=== PATIENT | female | born 1985 | race African-American/Black ===

== ENCOUNTER 2016-10-21 02:45 | Emergency (ER) | payer BC ==
[~2016-10-21] VITALS: Ht 162.6 cm; Wt 71.0 kg
[2016-10-21 05:25] VITALS: BP 103/66
[2016-10-21] MEDS ORDERED: TETANUS, DIPHTHERIA, PERTUSSIS VAC/PF 0.5ML (>7YR OLD) IM ONE (05:30)
[2016-10-21] MEDS ORDERED: BACITRACIN ZINC OINT UDPKT TOP ONE (05:30)
[2016-10-21] MEDS ORDERED: LIDOCAINE HCL 1% 20ML VIAL (Pyxis) INJ MC ONE (05:30)
== END 2016-10-21 06:30 | disposition home or self-care (01) ==
LOC: ER 06:24
PROC: 0HQGXZZ Repair Left Hand Skin, External Approach (ICD-10-PCS; principal; 2016-10-21)
DX: S61.211A Laceration without foreign body of left index finger without damage to nail, initial encounter (principal); W25.XXXA Contact with sharp glass, initial encounter; F17.210 Nicotine dependence, cigarettes, uncomplicated; Y93.G1 Activity, food preparation and clean up; Y92.89 Other specified places as the place of occurrence of the external cause
CPT/HCPCS: 12001; 90471; 90715; 99283; J3490; X7700; Z7610

== ENCOUNTER 2018-08-15 01:32 | Emergency (ER) | payer BC, MEDICAID, OTHER ==
[~2018-08-15] VITALS: Ht 160 cm; Wt 72.0 kg
[2018-08-15] MEDS: KETOROLAC 30MG/ML VIAL IV STA (03:09)
[2018-08-15] MEDS: ONDANSETRON HCL 4MG/2ML INJ IV STA (03:09)
[2018-08-15] MEDS: SODIUM CHLORIDE 0.9% 1,000 ML IV ONE (03:09)
[2018-08-15 04:03] LABS: HEMATOCRIT. 39.5 % (36.0-48.0); HEMOGLOBIN. 12.7 g/dL (12.0-16.0); MEAN CORPUSCULAR HEMOGLOBIN 27.3 pg (28.0-32.0); MEAN CORPUSCULAR VOLUME 85.1 fL (81.0-99.0); MEAN PLATELET VOLUME 9.3 fl (7.4-10.4); PLATELET 286 x1000/uL (130-400); RED BLOOD CELL COUNT 4.64 mill/uL (4.2-5.4); RED CELL DISTRIBUTION WIDTH 13.2 % (11.6-14.6)
[2018-08-15 04:08] LABS: CHLORIDE 105 mEq/L (98-107); PROTHROMBIN TIME 10.6 sec (9.6-11.0)
[2018-08-15 05:06] LABS: CLARITY URINE CLOUDY (CLEAR); COLOR URINE YELLOW (YELLOW); KETONES URINE TRACE (NEGATIVE); LEUKOCYTE ESTERASE URINE 1+ (NEGATIVE); NITRITE URINE NEGATIVE (NEGATIVE); OCCULT BLOOD URINE NEGATIVE (NEGATIVE); PH URINE 5.5 (4.5-8.0); PROTEIN URINE NEGATIVE (NEGATIVE); SPECIFIC GRAVITY URINE 1.024 (1.005-1.030); UROBILINOGEN URINE 0.2 E.U./dL (0.2-1.0)
[2018-08-15 06:14] LABS: PLATELET ESTIMATE NORMAL
[2018-08-15] MEDS: MORPHINE SULFATE 4 MG/ML CPJ (NOT FOR IM USE) IV ONE (06:57)
[2018-08-15 07:17] VITALS: BP 101/68
== END 2018-08-15 07:17 | disposition home or self-care (01) ==
LOC: ER 01:32
DX: K80.50 Calculus of bile duct without cholangitis or cholecystitis without obstruction (principal); R74.8 Abnormal levels of other serum enzymes; N39.0 Urinary tract infection, site not specified; Z98.890 Other specified postprocedural states; Z88.8 Allergy status to other drugs, medicaments and biological substances
CPT/HCPCS: 36415; 76705; 80053; 81003; 81025; 83690; 85025; 85610; 96374; 96375; 99284; J1885; J2270; J2405; J7030; Z7610